=== PATIENT | male | born 1995 | race Caucasian/White ===

== ENCOUNTER 2017-10-21 20:41 | Emergency (ER) | payer OTHER ==
[~2017-10-21] VITALS: Ht 185.4 cm; Wt 127.9 kg
[2017-10-21 20:52] VITALS: Ht 185.4 cm; Wt 127.9 kg
[2017-10-21 22:07] VITALS: BP 146/88
== END 2017-10-21 22:07 | disposition left against medical advice (07) ==
LOC: ED 20:41
DX: Z53.21 Procedure and treatment not carried out due to patient leaving prior to being seen by health care provider (principal)